=== PATIENT | female | born 1980 | race African-American/Black ===

== ENCOUNTER 2025-03-07 14:51 | Emergency (ER) | payer MEDICAID ==
[~2025-03-07] VITALS: Ht 152.4 cm; Wt 172.0 kg
[2025-03-07 15:04] VITALS: O2SAT 99
[2025-03-07 15:15] VITALS: TEMP 36.8; O2SAT 99
[2025-03-07 16:32] VITALS: BP 100/63; PULSE 80; RESP 16
[2025-03-07] MEDS: HYDROCODONE/ACETAMINOPHEN 10/325MG TABLET PO ONE (16:32)
[2025-03-07 16:46] LABS: BASOPHILS % 0.4 % (0.0-2.0); EOSINOPHILS % 0.3 % (0.0-5.0); HEMATOCRIT. 30.6 % (36.0-48.0); HEMOGLOBIN. 9.7 g/dL (12.0-16.0); LYMPHOCYTES % 22.4 % (20.0-50.0); MEAN PLATELET VOLUME 8.3 fl (7.4-10.4); MONOCYTES % 5.3 % (2.0-8.0); NEUTROPHILS % 71.6 % (40.0-76.0); PLATELET 342 x1000/uL (130-400); RED BLOOD CELL COUNT 3.98 mill/uL (4.2-5.4); RED CELL DISTRIBUTION WIDTH 19.3 % (11.6-14.6)
[2025-03-07 16:55] LABS: INR 1.0
[2025-03-07 17:00] LABS: CREATININE 0.8 mg/dL (0.6-1.0)
[2025-03-07 17:01] LABS: TROPONIN I HIGH SENSITIVITY < 4 ng/L (3.0-34); UREA NITROGEN BLOOD 8 mg/dL (9-23)
[2025-03-07 17:02] LABS: ASPARTATE AMINOTRANSFERASE 17 IU/L (<34)
[2025-03-07 17:03] LABS: BILIRUBIN DIRECT < 0.1 mg/dL (<=3.0); BILIRUBIN TOTAL 0.3 mg/dL (0.1-1.0); PROTEIN TOTAL 8.2 g/dL (6.0-8.3)
[2025-03-07 17:16] LABS: HCG SCREEN NEGATIVE
[2025-03-07] MEDS ORDERED: IBUP-2030 MT (17:54)
[2025-03-07] MEDS ORDERED: ALBU18HF2 IH (17:54)
== END 2025-03-07 21:39 | disposition home or self-care (01) ==
LOC: ER 14:51
DX: R07.89 Other chest pain (principal); M79.89 Other specified soft tissue disorders; E78.00 Pure hypercholesterolemia, unspecified; I11.0 Hypertensive heart disease with heart failure; I50.9 Heart failure, unspecified; J45.909 Unspecified asthma, uncomplicated; M79.7 Fibromyalgia; Z79.899 Other long term (current) drug therapy
CPT/HCPCS: 36415; 71045; 80048; 80076; 83880; 84484; 84703; 85025; 93005; 99285